=== PATIENT | female | born 1990 | race Caucasian/White ===

== ENCOUNTER 2016-08-09 11:10 | Emergency (ER) | payer OTHER ==
[2016-08-09 11:15] VITALS: TEMP 98.2
[2016-08-09] MEDS ORDERED: NS 1,000 ML IV ONE ×3 (11:33→11:37)
[2016-08-09] MEDS ORDERED: ONDANSETRON 4 MG/2 ML VIAL IVP ONE (11:37)
[2016-08-09 11:43] LABS: % IMMATURE GRANULYOCYTES 0.3 % (0.0-1.1); ABSOLUTE IMMATURE GRANULOCYTES 0.02 10^3/uL (0.00-0.10); ADD DIFF? NO; ADD MORPH? NO; ADD SCAN? NO; ATYPICAL LYMPHOCYTE FLAG 40 (0-99); FRAGMENT RBC FLAG 0 (0-99); HEMATOCRIT 43.7 % (38.0-47.0); HEMOGLOBIN 14.8 g/dL (12.6-16.3); LEFT SHIFT FLG 0 (0-99); LIPEMIA HEMOLYSIS FLAG 90 (0-99); MEAN CELL HEMOGLOBIN 31.2 pg (27.9-34.1); MEAN CELL HEMOGLOBIN CONCENTR. 33.9 g/dL (32.4-36.7); MEAN CELL VOLUME 92.2 fL (81.5-99.8); MEAN PLATELET VOLUME 10.2 fL (8.7-11.7); PLATELET CLUMPS FLAG 0 (0-99); PLATELET COUNT 341 10^3/uL (150-400); RED BLOOD CELL COUNT 4.74 10^6/uL (4.18-5.33); RED CELL DISTRIBUTION WIDTH 12.4 % (11.5-15.2)
[2016-08-09 11:50] LABS: ALANINE AMINOTRANSFERASE 56 IU/L (9-52); ALBUMIN 4.5 g/dL (3.5-5.0); ALKALINE PHOSPHATASE 59 IU/L (38-126); ANION GAP 11 mEq/L (8-16); ASPARTATE AMINOTRANSFERASE 29 IU/L (14-46); BILIRUBIN,TOTAL 1.7 mg/dL (0.1-1.4); BILIRUBIN-CONJUGATED 0.2 mg/dL (0.0-0.5); BILIRUBIN-UNCONJUGATED 1.5 mg/dL (0.0-1.1); CARBON DIOXIDE 26 mEq/l (22-31); CHLORIDE 100 mEq/L (97-110); CREATININE 0.7 mg/dL (0.6-1.0); GLOMERULAR FILTRATION RATE > 60; GLUCOSE 59 mg/dL (70-100); POTASSIUM 4.4 mEq/L (3.5-5.2); SODIUM 137 mEq/L (134-144); TOTAL PROTEIN 7.4 g/dL (6.3-8.2)
[2016-08-09 12:06] LABS: COLOR PALE YELLOW; LEUKOCYTE ESTERASE,URINE NEGATIVE (NEGATIVE); NITRITE,URINE NEGATIVE (NEGATIVE)
[2016-08-09 13:16] VITALS: BP 133/65; PULSE 63; RESP 16; O2SAT 98
--- NOTE | 2016-08-09 13:19 | EDPHY ---
H & P Stated Complaint: RETURNED FROM [place] MONDAY/N/ Time Seen by Provider: 08/09/16 11:18 HPI/ROS: Chief complaint: Abdominal pain with nausea and vomiting History of present illness: This is a 26-year-old female who returned from a trip to [place] last week who presents to the emergency department for evaluation of abdominal pain with associated nausea and vomiting. Patient states she has had abdominal pain since she returned home. It is intermittent in nature. She describes diffuse pain although appears more pronounced in the upper abdomen. Intermittent nausea and vomiting as well described as nonbloody. She denies precipitating factors. She denies alleviating factors. She is not eating or drinking well because of the nausea and vomiting and has now developed a headache and feels lightheaded. She denies other associated signs or symptoms including no fevers, no diarrhea, no urinary symptoms. Review of systems: A 10 point review of systems was obtained and other than described above was negative - Personal History LMP (Females 10-55): 1-7 Days Ago Current Tetanus/Diphtheria Vaccine: Yes - Medical/Surgical History Hx Asthma: No Hx Chronic Respiratory Disease: No Hx Diabetes: No Hx Cardiac Disease: No Hx Renal Disease: No Hx Cirrhosis: No Hx Alcoholism: No Hx HIV/AIDS: No Hx Splenectomy or Spleen Trauma: No Other PMH: PSH: wisdom teeth;. PMH: denies - Social History Smoking Status: Never smoked - Physical Exam Exam: General Appearance: Alert, nontoxic, resting comfortably in bed using her computer. Eyes: Pupils equal and round no pallor or injection. ENT, Mouth: Mucous membranes moist. Respiratory: There are no retractions, lungs are clear to auscultation. Cardiovascular: Regular rate and rhythm. Gastrointestinal: Bowel sounds are normal. Abdomen is soft, nondistended, nontender. Neurological: Alert and oriented x4. Strength and sensation intact and symmetrical. Skin: Warm and dry, no rashes. Musculoskeletal: Neck is supple non tender. Extremities are symmetrical, full range of motion. Psychiatric: Patient is oriented X 3, there is no agitation. Constitutional: Initial Vital Signs Temperature (C) 36.8 C 08/09/16 11:13 Heart Rate 79 08/09/16 11:13 Respiratory Rate 20 08/09/16 11:13 Blood Pressure 130/79 H 08/09/16 11:13 O2 Sat (%) 99 04/11/17 11:13 O2 Delivery Mode Room Air Allergies/Adverse Reactions: No Known Allergies Allergy (Verified 08/09/16 11:11) Home Medications: Medication Instructions Recorded Ondansetron Odt [Zofran Odt 4 mg 4 mg PO Q4 #10 tab 08/09/16 (*)] Medical Decision Making - Diagnostics Imaging: Imaging Impressions Abdomen Ultrasound 08/09/16 12:15 Impression: Basically a normal limited right upper quadrant ultrasound. Findings and recommendations discussed with Corey Love PA-C, at 1408 hours, on August 09, 2016. Final report concurs with initial preliminary interpretation. ED Course/Re-evaluation: Patient seen under the supervision of my primary supervising physician Dr. Kiara Soto. Patient presents to the emergency department with abdominal discomfort with associated nausea and vomiting. This is after returning from a trip to [place]. On presentation she is nontoxic. She is afebrile and vital signs are stable. She has an unremarkable physical exam. Abdominal exam is benign, serial abdominal exams remain benign. Blood studies are largely unremarkable except for trace changes in LFTs. Right upper quadrant ultrasound however is pursued and unremarkable. Patient is IV hydrated and feeling better. She is concerned about potential infectious pathology and stool studies are obtained. Given lack of fever, lack of white count and benign abdominal exam I do not believe further evaluation is warranted including CT scan of the abdomen and pelvis. I do believe she is appropriate for outpatient management. She is discharged home. She is asked to follow up with her primary care doctor for recheck and follow up on stool studies. Home care is discussed. She is given strict return precautions, she voiced understanding and agreement with plan. Differential Diagnosis: Included but not limited to gastritis, gastroenteritis, biliary tract disease, pancreatitis, colitis, urinary tract disease - Data Points Laboratory Results: Laboratory Results 08/09/16 11:30 08/09/16 11:30 08/09/16 08/09/16 08/09/16 14:10 11:37 11:30 WBC RBC Hgb Hct MCV MCH MCHC RDW Plt Count MPV Neut % (Auto) Lymph % (Auto) [place] % (Auto) Eos % (Auto) Baso % (Auto) Nucleat RBC Rel Count Absolute Neuts (auto) Absolute Lymphs (auto) Absolute Monos (auto) Absolute Eos (auto) Absolute Basos (auto) Absolute Nucleated RBC Immature Gran % Immature Gran # Sodium Potassium Chloride Carbon Dioxide Anion Gap BUN Creatinine Estimated GFR Glucose Calcium Total Bilirubin Conjugated Bilirubin Unconjugated Bilirubin AST ALT Alkaline Phosphatase Total Protein Albumin Lipase Beta HCG, Qual NEGATIVE Urine Color PALE YELLOW Urine Appearance CLEAR Urine pH 9.0 H (5.0-7.5) Ur Specific Alpha 1.002 (1.002-1.030) Urine Protein NEGATIVE (NEGATIVE) Urine Ketones NEGATIVE (NEGATIVE) Urine Blood NEGATIVE (NEGATIVE) Urine Nitrate NEGATIVE (NEGATIVE) Urine Bilirubin NEGATIVE (NEGATIVE) Urine Urobilinogen NEGATIVE EU EU (0.2-1.0) Ur Leukocyte Esterase NEGATIVE (NEGATIVE) Ur Culture Indicated? NOT INDICATED (NI) Urine Glucose NEGATIVE (NEGATIVE) Stool Concentration Pending Stool Occult Bld Scrn NEGATIVE (NEGATIVE) Stool Ova & Parasites MUCOID BROWN STOOL Parasite Trichrome Pending Direct Microscop Exam NONE SEEN (NONE SEEN) 08/09/16 08/09/16 11:30 11:30 WBC 7.58 10^3/uL 10^3/uL (3.80-9.50) RBC 4.74 10^6/uL 10^6/uL (4.18-5.33) Hgb 14.8 g/dL g/dL (12.6-16.3) Hct 43.7 % % (38.0-47.0) MCV 92.2 fL fL (81.5-99.8) MCH 31.2 pg pg (27.9-34.1) MCHC 33.9 g/dL g/dL (32.4-36.7) RDW 12.4 % % (11.5-15.2) Plt Count 341 10^3/uL 10^3/uL (150-400) MPV 10.2 fL fL (8.7-11.7) Neut % (Auto) 52.9 % % (39.3-74.2) Lymph % (Auto) 33.9 % % (15.0-45.0) [place] % (Auto) 6.9 % % (4.5-13.0) Eos % (Auto) 5.5 % % (0.6-7.6) Baso % (Auto) 0.5 % % (0.3-1.7) Nucleat RBC Rel Count 0.0 % % (0.0-0.2) Absolute Neuts (auto) 4.01 10^3/uL 10^3/uL (1.70-6.50) Absolute Lymphs (auto) 2.57 10^3/uL 10^3/uL (1.00-3.00) Absolute Monos (auto) 0.52 10^3/uL 10^3/uL (0.30-0.80) Absolute Eos (auto) 0.42 10^3/uL H 10^3/uL (0.03-0.40) Absolute Basos (auto) 0.04 10^3/uL 10^3/uL (0.02-0.10) Absolute Nucleated RBC 0.00 10^3/uL 10^3/uL (0-0.01) Immature Gran % 0.3 % % (0.0-1.1) Immature Gran # 0.02 10^3/uL 10^3/uL (0.00-0.10) Sodium 137 mEq/L mEq/L (134-144) Potassium 4.4 mEq/L mEq/L (3.5-5.2) Chloride 100 mEq/L mEq/L (97-110) Carbon Dioxide 26 mEq/l mEq/l (22-31) Anion Gap 11 mEq/L mEq/L (8-16) BUN 11 mg/dL mg/dL (7-23) Creatinine 0.7 mg/dL mg/dL (0.6-1.0) Estimated GFR > 60 Glucose 59 mg/dL L mg/dL (70-100) Calcium 10.0 mg/dL mg/dL (8.5-10.4) Total Bilirubin 1.7 mg/dL H mg/dL (0.1-1.4) Conjugated Bilirubin 0.2 mg/dL mg/dL (0.0-0.5) Unconjugated Bilirubin 1.5 mg/dL H mg/dL (0.0-1.1) AST 29 IU/L IU/L (14-46) ALT 56 IU/L H IU/L (9-52) Alkaline Phosphatase 59 IU/L IU/L (38-126) Total Protein 7.4 g/dL g/dL (6.3-8.2) Albumin 4.5 g/dL g/dL (3.5-5.0) Lipase 101.0 IU/L IU/L (23-300) Beta HCG, Qual Urine Color Urine Appearance Urine pH Ur Specific Alpha Urine Protein Urine Ketones Urine Blood Urine Nitrate Urine Bilirubin Urine Urobilinogen Ur Leukocyte Esterase Ur Culture Indicated? Urine Glucose Stool Concentration Stool Occult Bld Scrn Stool Ova & Parasites Parasite Trichrome Direct Microscop Exam Microbiology Results: MICROBIOLOGY 08/09/16 14:10 Stool Fecal Leukocyte Stain - Final Medications Given: Discontinued Medications Sodium Chloride (Ns) 1,000 mls @ 0 mls/hr IV ONCE ONE PRN Reason: Wide Open Stop: 08/09/16 11:34 Last Admin: 08/09/16 11:33 Dose: 1,000 mls Sodium Chloride (Ns) 1,000 mls @ 0 mls/hr IV ONCE ONE PRN Reason: Wide Open Stop: 08/09/16 11:38 Last Admin: 08/09/16 12:31 Dose: 1,000 mls Ondansetron HCl (Zofran) 4 mg IVP EDNOW ONE Stop: 08/09/16 11:38 Last Admin: 08/09/16 14:26 Dose: Not Given Departure - Departure Disposition: Home, Routine, Self-Care Clinical Impression: Nausea and vomiting Condition: Good Instructions: Acute Nausea and Vomiting (ED) Additional Instructions: Follow-up with your primary care doctor this week for continued evaluation and care If symptoms worsen or new symptoms develop return to the emergency room for recheck Referrals: Jerri Sheldon MD [Primary Care Provider] - As per Instructions Prescriptions: Ondansetron Odt [Zofran Odt 4 mg (*)] 4 mg PO Q4 #10 tab
[2016-08-09 15:03] LABS: OCCULT BLOOD FECES NEGATIVE (NEGATIVE)
[2016-08-09 15:08] LABS: O/P DESCRIPTION MUCOID BROWN STOOL; O/P DIRECT NONE SEEN (NONE SEEN)
[2016-08-10 18:11] LABS: O/P CONCENTRATION NONE SEEN (NONE SEEN)
[2016-08-11 08:34] LABS: O/P TRICHROME NONE SEEN (NONE SEEN)
== END 2016-08-09 14:30 | disposition home or self-care (01) ==
DX: R11.2 Nausea with vomiting, unspecified (principal)

== ENCOUNTER → 2017-01-26 | Outpatient (CLI) | payer OTHER | LOC: FIMAGING 17:46 | PROVIDERS: ATTEND Family Medicine | DX: R51 Headache (principal) ==